=== PATIENT | female | born 1930 | race Caucasian/White ===

== ENCOUNTER → 2016-09-20 | Outpatient (CLI) | payer OTHER ==
[~2016-09-20] VITALS: Ht 160 cm; Wt 87.0 kg
[~2016-09-20] MED LIST: ACCUPRIL20 MG; ACCUPRIL20 MG PO; ACCUPRIL40 MG PO; AGGRENOX1 CAPSULE; ASPIRIN81 M1; ASPIRIN81 M2 PO; CALCIUM 500 WI1 EAC2 PO; CALCIUM 600 +1 EAC7 PO; CARDIZEM CD120 MG PO; CARVEDILOL3.125 MG PO; CARVEDILOL6.25 MG PO; CIPRO500 MG PO; CO Q-1010 MG PO; COREG3.125 M1 PO; D3-5050000 UNIT; FLAGYL500 MG PO; FUROSEMIDE20 MG PO; GLUCOSAMINE1 CAPSULE; LIDOCAINE700 MG TD; LO-DOSE ASPIRIN81 M1 PO; LOVENOX40 MG/0.4 SC; LUMIGAN 0.50 DROP/2. BOTH EYES; NEXIUM20 MG PO; PLAVIX75 MG PO; POLYETHYLENE GL17 GM PO; POTASSIUM-9999 MG; SYNTHROID50 MCG PO; THERAGRAN1 TABLET PO; TYLENOL WITH C1 EACH PO; VITAMIN B12-FO1 EACH PO; VITAMIN B650 MG; VITAMIN D-32000 UNI2 PO; VITAMIN D31000 UNIT PO; VITAMIN D32000 UNI1 PO; XANAX0.5 MG PO
[2016-09-20 16:45] VITALS: BP 154/70
== END | disposition home or self-care (01) ==
LOC: IVINF 16:09
DX: M81.0 Age-related osteoporosis without current pathological fracture (principal)
CPT/HCPCS: 96365; J3489

== ENCOUNTER 2016-09-29 19:08 | Emergency (ER) | payer OTHER ==
[~2016-09-29] VITALS: Ht 167.6 cm; Wt 92.1 kg
[~2016-09-29 19:08] MED LIST changes: -FLAGYL500 MG PO
[2016-09-29 20:29] LABS: HEMATOCRIT 42.3 % (36.0-46.0); MCH 26.6 PG (29.0-34.0); MCHC 31.2 G/DL (30.0-36.0); MCV 85.1 FL (83-99); MEAN PLAT.VOLUME 8.9 uM^3 (9.5-12.4); PLATELET COUNT 296 K/uL (156-360); RBC DIS.WIDTH-CV 15.3 % (11.8-14.6); RED BLOOD COUNT 4.97 M/uL (3.80-5.20); WHITE BLOOD COUNT 10.7 K/uL (4.1-10.2)
[2016-09-29 20:37] LABS: CHLORIDE 100 mEq/L (99-109); POTASSIUM 4.6 mEq/L (3.7-5.4); SODIUM 135 mEq/L (136-147)
[2016-09-29 20:39] LABS: GLUCOSE 121 mg/dL (70-99)
[2016-09-29 20:40] LABS: ANION GAP 8 MEQ/L (2-14)
[2016-09-29 20:43] LABS: GFR ESTIMATE (CALCULATED) 56 mL/min/; UREA NITROGEN (BUN) 18 mg/dL (9-23)
[2016-09-29 21:28] LABS: ADD MIUA? NO; BILIRUBIN NEGATIVE; BLOOD NEGATIVE; COLOR YELLOW ((YELLOW)); GLUCOSE (STRIP) NEGATIVE; KETONES NEGATIVE; LEUKOCYTES NEGATIVE; NITRITE NEGATIVE; PROTEIN (STRIP) NEGATIVE; SPECIFIC GRAVITY 1.011 (1.000-1.030); UCUL ADDED? NO; UROBILINOGEN 0.2 MG/DL (0.2-1.0)
[2016-09-29] MEDS ORDERED: FLAGYL500 MG PO (23:41)
[2016-09-29] MEDS ORDERED: CIPRO500 MG PO (23:41)
[2016-09-30 00:07] VITALS: BP 126/60
== END 2016-09-30 00:09 | disposition home or self-care (01) ==
LOC: EME → EDBD 19:08 → EME 19:08
PROVIDERS: Emergency Medicine
DX: K52.9 Noninfective gastroenteritis and colitis, unspecified (principal); K62.89 Other specified diseases of anus and rectum; Z87.440 Personal history of urinary (tract) infections; E78.5 Hyperlipidemia, unspecified; I10 Essential (primary) hypertension; I25.2 Old myocardial infarction; K21.9 Gastro-esophageal reflux disease without esophagitis; Z86.73 Personal history of transient ischemic attack (TIA), and cerebral infarction without residual deficits; E03.9 Hypothyroidism, unspecified; Z98.61 Coronary angioplasty status; Z95.0 Presence of cardiac pacemaker; Z85.828 Personal history of other malignant neoplasm of skin; Z85.820 Personal history of malignant melanoma of skin; Z96.642 Presence of left artificial hip joint; Z79.82 Long term (current) use of aspirin
CPT/HCPCS: 74177; 80048; 81003; 85027; 99281; 99285

== ENCOUNTER 2016-10-14 11:13 | Observation (INO) | payer OTHER ==
[~2016-10-14] VITALS: Ht 167.6 cm; Wt 83.9 kg
[~2016-10-14 11:13] MED LIST changes: +FLAGYL500 MG PO
[2016-10-14 12:43] LABS: HEMATOCRIT 37.7 % (36.0-46.0); MCH 26.9 PG (29.0-34.0); MCHC 31.3 G/DL (30.0-36.0); MCV 86.1 FL (83-99); MEAN PLAT.VOLUME 8.8 uM^3 (9.5-12.4); PLATELET COUNT 215 K/uL (156-360); RBC DIS.WIDTH-CV 15.4 % (11.8-14.6); RED BLOOD COUNT 4.38 M/uL (3.80-5.20); WHITE BLOOD COUNT 5.3 K/uL (4.1-10.2)
[2016-10-14 12:59] LABS: CHLORIDE 102 mEq/L (99-109); POTASSIUM 4.2 mEq/L (3.7-5.4); SODIUM 138 mEq/L (136-147)
[2016-10-14 13:00] LABS: GLUCOSE 98 mg/dL (70-99)
[2016-10-14 13:02] LABS: ANION GAP 10 MEQ/L (2-14)
[2016-10-14 13:04] LABS: GFR ESTIMATE (CALCULATED) > 59 mL/min/
[2016-10-14 13:05] LABS: UREA NITROGEN (BUN) 13 mg/dL (9-23)
[2016-10-14 13:09] LABS: TROP-I INTERPRETATION NEGATIVE; TROPONIN-I < 0.01 ng/mL (0.0-0.30)
[2016-10-14 16:23] LABS: D-DIMER ELISA 0.87 mg/L FEU (< 0.57)
[2016-10-14 17:27] VITALS: BP 148/66
[2016-10-14 19:52] LABS: TROP-I INTERPRETATION NEGATIVE; TROPONIN-I 0.03 ng/mL (0.0-0.30)
[2016-10-14 20:00] VITALS: BP 145/65
[2016-10-14 23:37] VITALS: BP 137/63
[2016-10-15 01:18] LABS: TROP-I INTERPRETATION NEGATIVE; TROPONIN-I 0.01 ng/mL (0.0-0.30)
[2016-10-15 03:40] VITALS: BP 138/64
[2016-10-15 06:55] LABS: TROP-I INTERPRETATION NEGATIVE; TROPONIN-I 0.02 ng/mL (0.0-0.30)
[2016-10-15 06:57] LABS: ALKALINE PHOSPHATASE 34 IU/L (3-129); ANION GAP 8 MEQ/L (2-14); CHLORIDE 104 MEQ/L (99-109); GFR ESTIMATE (CALCULATED) > 59 mL/min/; GLUCOSE 85 mg/dL (70-99); POTASSIUM 4.3 MEQ/L (3.7-5.4); SAMPLE HEMOLYSIS CHECK 0; SAMPLE ICTERIC CHECK 0; SAMPLE LIPEMIA CHECK 0; SODIUM 140 MEQ/L (136-147); TOTAL BILIRUBIN 0.5 MG/DL (0.0-1.0); UREA NITROGEN (BUN) 11 mg/dL (9-23)
[2016-10-15 07:28] VITALS: BP 118/58
== END 2016-10-15 10:57 | disposition home or self-care (01) ==
LOC: EME → EDBD 11:13 → EME 11:13 → 5WEST 14:29 → EDOF 14:29 → 5WEST 17:10
PROVIDERS: Hospitalist
DX: R07.89 Other chest pain (principal); R42 Dizziness and giddiness; R94.31 Abnormal electrocardiogram [ECG] [EKG]; R00.2 Palpitations; I10 Essential (primary) hypertension; I25.10 Atherosclerotic heart disease of native coronary artery without angina pectoris; E78.5 Hyperlipidemia, unspecified; Z95.0 Presence of cardiac pacemaker; Z95.5 Presence of coronary angioplasty implant and graft; E03.9 Hypothyroidism, unspecified
CPT/HCPCS: 71020; 71275; 80048; 80053; 84484; 85027; 85379; 93005; 99281; 99284; G0378; J1644

== ENCOUNTER → 2017-10-03 | Outpatient (CLI) | payer OTHER ==
[~2017-10-03] VITALS: Ht 161.9 cm; Wt 85.7 kg
[~2017-10-03] MED LIST changes: +CALCIUM 500 MG1 EACH PO; +VITAMIN D2000 UNIT PO
[2017-10-03 13:07] VITALS: BP 133/61
== END | disposition home or self-care (01) ==
LOC: IVINF 12:52
DX: M81.0 Age-related osteoporosis without current pathological fracture (principal); Z87.19 Personal history of other diseases of the digestive system
CPT/HCPCS: 96365; J3489